=== PATIENT | female | born 1985 | race American Indian/Alaskan Native ===

== ENCOUNTER 2022-03-31 22:48 | Emergency (ER) | payer SELFPAY ==
[2022-03-31 23:21] VITALS: BP 112/58
[2022-04-01] MEDS ORDERED: KETOROLAC 30 MG/1 ML INJ IM ONE (01:44)
[2022-04-01] MEDS ORDERED: ONDANSETRON 4 MG ODT TAB PO ONE (01:44)
[2022-04-01] MEDS ORDERED: HYDROcodone/ACETAMINOPHEN 5-325 MG TAB PO ONE (01:44)
[2022-04-01] MEDS ORDERED: AMOXICILLIN/K CLAV 875/125MG TAB PO ONE (01:44)
--- NOTE | 2022-04-01 02:17 | Emergency Department Report ---
ED General Adult HPI - General Chief complaint: Earache Stated complaint: RIGHT EARACHE Source: patient Mode of arrival: Ambulatory Limitations: No Limitations - History of Present Illness Initial comments: Patient is a 36-year-old -[place] female with a history of morbid obesity presents to the ED with complaint of acute onset persistent nontraumatic right ear pain for the last 8 hours. Patient states that she has not been unable to eat or sleep because of worsening pain which she describes as sharp and constant. Patient denies hearing loss, dizziness, syncope, and nausea and vomiting, chest pain or shortness of breath, cough, nasal and sinus congestion, headache, dysphagia or dysphonia, neck pain, back pain or change in vision. MD Complaint: right ear pain -: Sudden, hour(s) (8) Location: face (Right ear pain) Radiation: non-radiation Severity scale (0 -10): 9 Quality: aching, sharp Consistency: constant Improves with: none Worsens with: none Associated Symptoms: denies other symptoms. denies: confusion, chest pain, cough, diaphoresis, fever/chills, headaches, loss of appetite, malaise, nausea/vomiting, seizure, shortness of breath, syncope, weakness Treatments Prior to Arrival: none - Related Data Previous Rx's Medication Instructions Recorded Last Taken Type Acetaminophen/Codeine [Tylenol 1 tab PO Q6H PRN #10 tab 04/01/22 Unknown Rx /Codeine # 3 tab] Amoxicillin/K Clav Tab [Augmentin 1 tab PO Q12HR #20 tab 04/01/22 Unknown Rx 875 mg] Ketorolac [Toradol] 10 mg PO Q8H PRN #20 tab 04/01/22 Unknown Rx Ofloxacin 0.3% [Floxin 0.3% Otic] 3 drop OT Q12H #5 ml 04/01/22 Unknown Rx Allergies Allergy/AdvReac Type Severity Reaction Status Date / Time No Known Allergies Allergy Unverified 03/31/22 23:21 ED Review of Systems ROS: Stated complaint: RIGHT EARACHE Other details as noted in HPI Constitutional: denies: chills, fever Eyes: denies: eye pain, eye discharge, vision change ENT: ear pain (Right ear pain). denies: throat pain Respiratory: denies: cough, shortness of breath, wheezing Cardiovascular: denies: chest pain, palpitations Endocrine: no symptoms reported Gastrointestinal: denies: abdominal pain, nausea, vomiting, diarrhea Genitourinary: denies: urgency, dysuria, discharge Musculoskeletal: denies: back pain, joint swelling, arthralgia Skin: denies: rash, lesions Neurological: denies: headache, weakness, paresthesias Psychiatric: denies: anxiety, depression Hematological/Lymphatic: denies: easy bleeding, easy bruising ED Past Medical Hx - Past Medical History Previous Medical History?: Yes Additional medical history: Morbid obesity - Medications Home Medications: Home Medications Medication Instructions Recorded Confirmed Last Taken Type Acetaminophen/Codeine [Tylenol 1 tab PO Q6H PRN #10 tab 04/01/22 Unknown Rx /Codeine # 3 tab] Amoxicillin/K Clav Tab [Augmentin 1 tab PO Q12HR #20 tab 04/01/22 Unknown Rx 875 mg] Ketorolac [Toradol] 10 mg PO Q8H PRN #20 tab 04/01/22 Unknown Rx Ofloxacin 0.3% [Floxin 0.3% Otic] 3 drop OT Q12H #5 ml 04/01/22 Unknown Rx ED Physical Exam - General Limitations: No Limitations General appearance: alert, in no apparent distress - Head Head exam: Present: atraumatic, normocephalic, normal inspection - Eye Eye exam: Present: normal appearance, PERRL, EOMI Pupils: Present: normal accommodation - ENT ENT exam: Present: normal orophraynx, mucous membranes moist, normal external ear exam, other (Erythematous bulging right tympanic membrane) - Neck Neck exam: Present: normal inspection, tenderness, full ROM, lymphadenopathy (Posterior right auricular lymphadenopathy) - Respiratory Respiratory exam: Present: normal lung sounds bilaterally. Absent: respiratory distress, wheezes, rales, rhonchi, chest wall tenderness, accessory muscle use, decreased breath sounds, prolonged expiratory - Cardiovascular Cardiovascular Exam: Present: regular rate, normal rhythm, normal heart sounds. Absent: systolic murmur, diastolic murmur, rubs, gallop - GI/Abdominal GI/Abdominal exam: Present: soft, normal bowel sounds. Absent: tenderness, guarding, rebound, hyperactive bowel sounds, hypoactive bowel sounds, organomegaly, mass - Extremities Exam Extremities exam: Present: normal inspection, full ROM, normal capillary refill. Absent: tenderness - Back Exam Back exam: Present: normal inspection, full ROM. Absent: tenderness, CVA tenderness (R), CVA tenderness (L), muscle spasm, paraspinal tenderness, brunilda tebral tenderness - Neurological Exam Neurological exam: Present: alert, oriented X3, CN II-XII intact, normal gait, reflexes normal - Psychiatric Psychiatric exam: Present: normal affect, normal mood, anxious - Skin Skin exam: Present: warm, dry, intact, normal color. Absent: rash ED Course Vital Signs 03/31/22 23:20 Temperature 98.4 F Pulse Rate 92 H Respiratory 20 Rate Blood Pressure 112/58 O2 Sat by Pulse 99 Oximetry ED Medical Decision Making - Medical Decision Making This is a 36-year-old -[place] female with a history of morbid obesity presents to the ED with complaint of acute onset persistent nontraumatic right ear pain for the last 8 hours. Patient states that she has not been unable to eat or sleep because of worsening pain which she describes as sharp and constant. In the ED, patient is alert and oriented x3 and is not in any distress. Patient is hemodynamically stable. Patient was treated for pain in the ED. On reevaluation, patient's pain is well controlled medication. Patient will discharge home on pain medications and antibiotics and advised to follow-up with her primary care physician in 7 to 10 days for reevaluation or return to the ED immediately if symptoms get worse. - Differential Diagnosis Otitis media; otitis externa; URI; Critical care attestation.: If time is entered above; I have spent that time in minutes in the direct care of this critically ill patient, excluding procedure time. ED Disposition Clinical Impression: Acute otitis media with effusion of right ear Disposition: HOME / SELF CARE / HOMELESS Is pt being admited?: No Does the pt Need Aspirin: No Condition: Stable Instructions: Otitis Media, Adult, [id number], Ear Drops, Adult, [id number] Additional Instructions: Take medication with food, drink plenty of fluids, follow-up with your primary care physician in 7 to 10 days for reevaluation. Return to the ED immediately if symptoms get worse. Prescriptions: Amoxicillin/K Clav Tab [Augmentin 875 mg] 1 tab PO Q12HR #20 tab Ofloxacin 0.3% [Floxin 0.3% Otic] 3 drop OT Q12H #5 ml Ketorolac [Toradol] 10 mg PO Q8H PRN #20 tab PRN Reason: Pain Acetaminophen/Codeine [Tylenol /Codeine # 3 tab] 1 tab PO Q6H PRN #10 tab PRN Reason: Pain , Severe (7-10) Referrals: [facility] [Provider Group] - 7-10 days Forms: Work/School Release Form(ED) Time of Disposition: 02:18 Print Language: GERMAN
== END 2022-04-01 03:15 | disposition home or self-care (01) ==
LOC: ED 22:48
DX: H65.91 Unspecified nonsuppurative otitis media, right ear (principal); Z79.899 Other long term (current) drug therapy
CPT/HCPCS: 96372; 99282; J1885; J3490; Q0162